=== PATIENT | male | born 1995 | race Caucasian/White ===

== ENCOUNTER 2024-10-30 20:32 | Emergency (ER) | payer SELFPAY ==
[2024-10-30 20:36] VITALS: BP 141/84
[2024-10-30 21:06] LABS: % Basophils 0.7 % (0-2); % Immature Granulocytes 0.4 % (0-0.5); % Lymphocytes 21.6 % (20.5-51.1); % Neutrophils 64.3 % (42.2-75.2); Absolute Basophils 0.1 10^3/uL (0-0.2); Absolute Eosinophils 0.3 10^3/uL (0-0.7); Absolute Lymphocytes 1.8 10^3/uL (1.2-3.4); Absolute Monocytes 0.8 10^3/uL (0.1-0.6); Absolute Neutrophils 5.3 10^3/uL (1.4-6.5); Hematocrit 40.2 % (39.0-52.0); Hemoglobin 14.2 g/dL (13.0-18.0); Mean Corp Hgb Conc. 35.3 g/dL (33.0-37.0); Mean Corpuscular Hgb 28.8 pg (27.0-31.0); Mean Corpuscular Volume 81.5 fL (80.0-94.0); Mean Platelet Volume 9.3 fL (7.4-10.4); Nucleated Red Blood Cells % 0 % (-); Platelet Count 268 10^3/uL (130-400); Red Blood Cell Count 4.93 10^6/uL (4.70-6.10); Red Cell Dist. Width 11.3 % (11.5-14.5); White Blood Cell Count 8.3 10^3/uL (4.8-10.8)
[2024-10-30 21:22] LABS: COVID-19 Antigen Negative (Negative)
[2024-10-30 21:24] LABS: ALT (SGPT) 19 U/L (0-50); AST (SGOT) 24 U/L (17-59); Albumin 4.9 g/dl (3.5-5.0); Alkaline Phosphatase 50 U/L (38-126); Blood Urea Nitrogen 13 mg/dl (9-20); Calcium 9.5 mg/dl (8.4-10.2); Carbon Dioxide 27 mmol/L (22-30); Chloride 98 mmol/L (98-107); Glucose 93 mg/dl (70-99); Potassium 4.1 mmol/L (3.5-5.1); Sodium 138 mmol/L (135-145); Total Bilirubin 1.6 mg/dl (0.2-1.3); Total Protein 7.8 g/dl (6.3-8.2); eGFR > 60.00
[2024-10-30] MEDS: MOTRIN 600 MG PO (21:35)
[2024-10-30] MEDS: ZOFRAN ODT (ORALLY DISINTEGRATING) 4 MG PO (21:36)
--- NOTE | 2024-10-31 00:14 | ED.GENMED ---
History of Present Illness
General
Chief Complaint: Headache
Source: patient
Exam Limitations: none
Time Seen by Provider: 10/30/24 23:53
History of Present Illness
History of Present Illness:
This is a 29 year old male that comes in with c/o headache. States that his headache started last Wednesday. States that it has never gotten better. States that his Birthday was on Wednesday and he didn't want to do anything. States that his headache pain
is all around. States that he tried going to work today but came home half way through the day due to his headache. States that he was nauseated. States that he was told that he had a low grade fever here. Denies any chills, chest pain, SOB, abd
pain, vomiting, diarrhea, dizziness, urinary burning.
Past History
Past History
ED Past Medical History: None; Negative Asthma, HTN, Hypercholesterolemia or NIDDM
ED Past Surgical History: None
Social History
Tobacco: Vaping
Alcohol: Occasional
Personal: Single
Living: alone
Review of Systems
Review of Systems
All Other Systems: ROS reviewed and negative except as documented in HPI and ROS
Constitutional: Reports fever (Low grade); Denies chills
EENT: Reports no symptoms
Respiratory: Reports no symptoms; Denies cough or trouble breathing
Cardiac: Reports no symptoms; Denies chest pain
ABD/GI: Reports nausea; Denies abdominal pain, vomiting or diarrhea
: Reports no symptoms; Denies dysuria, frequency or urgency
Musculoskeletal: Reports no symptoms
Skin: Reports no symptoms
Neurological: Reports headache; Denies dizzy
Psychiatric: Reports no symptoms
Phy Exam
General Physical Exam
General Presentation: well appearing and no apparent distress
General age: appears stated age
General Skin: warm and dry
General Habitus: normal
General Mental: alert
General Hydration: dry mucous membranes
ENT Exam
ENT Exam: TM's normal, pharynx normal and neck supple
Eye Exam
Eye Exam: EOMI
Cardiovascular Exam
Cardiovascular Exam: regular rate/rhythm, no edema, no murmur and normal peripheral pulses
Pulmonary Exam
Pulmonary Exam: lungs clear, no respiratory distress, no rales, chest non tender, no crackles, no rhonchi, no wheezing and no cough
Gastrointestinal Exam
Gastrointestinal Exam: normal bowel sounds, non tender, soft, no organomegaly, no pulsatile mass and non distended
Musculoskeletal Exam
Musculoskeletal Exam: full ROM, no edema and other (Neck supple)
Skin Exam
Skin Exam: normal color, warm/dry, no rash and no petechia
Psychiatric Exam
Psychiatric Exam: normal mood/affect
Course
Orders/Labs/Results
Orders:
Orders
10/30/24 20:44
Electrocardiogram (*1) Urgent
Reason for Study: Tachycardia
10/30/24 20:45
EKG- Treatment ONCE
10/30/24 20:56
COVID-19 Antigen Urgent
Source: Nasal Swab
Influenza A+B Rapid Molecular Urgent
CATERINA Source: Nasal Swab
Specimen Description:
10/30/24 20:59
CMP [Comprehensive Metabolic Panel] Urgent
Complete Blood Count/With Diff Urgent
10/30/24 21:12
Ibuprofen [Motrin] 600 mg PO NOW STA
Ondansetron Orally Disint [Zofran Odt (Orally Disintegrating)] 4 mg PO NOW STA
10/31/24 00:07
0.9% Sodium Chloride 1000 ml [Nss] 1,000 ml IV BOLUS
Dexamethasone Sod Phosphate [Decadron] 20 mg IV NOW STA
Diphenhydramine [Benadryl] 25 mg IV NOW STA
Prochlorperazine [Compazine] 5 mg IV NOW STA
10/31/24 00:08
Acetaminophen 1000MG/100Ml [Ofirmev] 1,000 mg in 100 ml IV ONCE
Acetaminophen IV Indication:: ED Narcotic Naive Pt-ONCE
10/31/24 00:15
CT Head W/o Iv Contrast Urgent
Comment:
Reason For Exam: Headache for a week
Abnormal Lab Results
10/30/24
20:59
RDW 11.3 L %
(11.5-14.5)
Absolute Monos (auto) 0.8 H 10^3/uL
(0.1-0.6)
Monocytes % 10.0 H %
(1.7-9.3)
Total Bilirubin 1.6 H mg/dl
(0.2-1.3)
10/30/24 20:59
10/30/24 20:59
Total brad slightly elevated. Otherwise labs normal. COVID and Influenza negative.
Vital Signs
Initial and Last Documented VS:
Initial Vital Signs
Temp Pulse Resp BP Pulse Ox
100.5 F H 98 18 141/84 96
10/30/24 20:36 10/30/24 20:36 10/30/24 20:36 10/30/24 20:36 10/30/24 20:36
Last Documented Vital Signs
Temp Pulse Resp BP Pulse Ox
100.5 F H 81 18 105/56 99
10/30/24 20:36 10/31/24 00:37 10/31/24 00:37 10/31/24 00:37 10/31/24 00:37
MDM/Problems Addressed
Differential Diagnosis Includes:
Headache. Viral syndrome. Menningitis
MDM/Problems Addressed:
This is a 29 year old male that comes in with c/o a headache for the past week. States that his headache is all over and he doesn't feel like doing anything.
Will check labs. CT head. Give IV fluids and medicate for pain.
Back into see patient. Patient states that he feels great. Encouraged patient to increase his water intake to 8-8oz glasses daily. Use Tylenol 1000mg every 6 hours and alternate with Ibuprofen 600mg every 6 hours for headache pain. Follow up with
the family doctor. Return with any concerns.
Chronic conditions affecting care:
NA
Acute Exacerbation and/or Progression of Chronic Illness:
NA
*Radiology
Radiology exam reviewed: radiology read reviewed (CT head night hawk-No acute intracranial findings. If there is a concern for acute ischemia, MRI is more sensitive. )
*Pulse Oximetry
Patient hypoxic: no
*EKG
Interpreted by ED Provider?: NA
Rate: EKG- N/A
*Green Chain Off Bearer Interpretation
Rate: Green Chain Off Bearer- N/A
*Critical Care Note
Total Time (30-74mins, 75-104mins- exclusive of procedures): Not Applicable
ED Attending Note
-
Portions of this chart may have been created with voice recognition software.� Occasional wrong word or��sound alike� substitutions may have occurred due to the inherent limitations of voice recognition software.
Discharge Plan
Departure
Patient Disposition: Home (Routine Discharge)
Date of Disposition: 10/31/24
Time of Disposition: 01:30
Patient with high blood pressure during this ER visit?: No
Condition: Good
Covid-19: Negative COVID-19
Discharge Problem:
Headache
Instructions: Headache, Adult (DC)
Prescriptions:
No Action
No Current Medications
0
Referrals:
NONE,* [Family Provider] -
Stand Alone Forms: Return to Work
Activity Restrictions/Additional Instructions:
As discussed, you are negative for COVID and Influenza. Your CT of the head is normal. Please increase your water intake to 8-8oz glasses daily. You may use Tylenol 1000mg every 6 hours and alternate with Ibuprofen 600mg every 6 hours with food for
any headache pain. So if you take Tylenol at 9am the Ibuprofen can be take at 12 noon and the Tylenol at 3pm and Ibuprofen at 6pm. Follow up with the family doctor for recheck. IF YOU HAVE ANY OTHER CONCERNS PLEASE RETURN TO THE EMERGENCY ROOM .
Interventions
Interventions:
*Risk Screen - Suicide Last Done: 10/30/24 20:36
*General Assessment Last Done: 10/30/24 20:36
*Neglect/Abuse Screening Last Done: 10/30/24 20:36
ED- Fall Risk Assessment Last Done: 10/30/24 20:36
*ED COVID-19 Vaccine History Last Done: 10/30/24 20:36
ED- Neurological Assessment Last Done: 10/31/24 00:38
Discharge Date and Time
Print Language: JAPANESE
[2024-10-31] MEDS: BENADRYL 25 MG IV (00:24)
[2024-10-31] MEDS: COMPAZINE 5 MG IV (00:24)
[2024-10-31] MEDS: NSS 1000 IV (00:24)
[2024-10-31] MEDS: DECADRON 20 MG IV (00:25)
[2024-10-31 00:37] VITALS: BP 105/56
== END 2024-10-31 02:31 | disposition home or self-care (01) ==
LOC: EMR 20:32
PROVIDERS: Emergency Medicine; EMERGENCY PHYSICIAN Emergency Medicine
DX: R51.9 Headache, unspecified (principal); Z11.52 Encounter for screening for COVID-19; F17.290 Nicotine dependence, other tobacco product, uncomplicated
CPT/HCPCS: 99285; 96374; 96375 ×2; 96361; 70450; 80053; 85025; 87502; 87811; 93005